=== PATIENT | female | born 1980 | race Caucasian/White ===

== ENCOUNTER 2020-05-23 14:22 | Emergency (ER) | payer OTHER, SELFPAY ==
--- NOTE | 2020-05-23 | XR_ITS ---
EXAMINATION: XR KNEE, LEFT CLINICAL INFORMATION: Pain. COMPARISON: None TECHNIQUE: Four views of the left knee. FINDINGS: A total knee arthroplasty is present in expected position. No evidence for loosening. There is a moderately sized joint effusion. An ossific density overlying the expected position of the suprapatellar bursa is of undetermined significance. This could represent dystrophic calcification. A loose body in the suprapatellar bursa is possible. Comparison with any prior examinations would be helpful. IMPRESSION: Left TKA with no complication demonstrated. Moderate joint effusion. Suprapatellar ossific density of undetermined significance. Comparison with any prior studies would be helpful.
[2020-05-23 14:50] VITALS: BP 146/97; PULSE 89; RESP 17; TEMP 36.6; O2SAT 100; BMI 30.9
--- NOTE | 2020-05-23 15:53 | ED_ITS ---
HPI - Extremity Problem General Chief complaint: Extremity Injury, Lower Stated complaint: L KNEE PAIN Time Seen by Provider: 05/23/20 15:11 History of Present Illness HPI Narrative: patient is 3 months after a left knee replacement and 1 week after a procedure to remove scar tissue and comes complaining of pain in the left knee, she has had no injury no fever Related Data Previous Rx's Medication Instructions Recorded oxycodone 5 mg PO Q6H PRN #20 cap 05/23/20 Allergies Allergy/AdvReac Type Severity Reaction Status Date / Time No Known Allergies Allergy Verified 05/23/20 14:55 [No Known Allergies*] Review of Systems Review of Systems: patient has no fever no chills no shortness of breath no chest pain no new injury no nausea no vomiting, no rash Yes all other systems are reviewed and are negative [facility] Past Medical History Source: nursing notes reviewed Surgical History (Updated 05/23/20 @ 14:53 by Anh Deng RN) History of total knee replacement Social History Social History Advance Directives: No Advance Directives Information Provided: No Physical Exam Vital Signs and I&O and Narrative: Vital Signs and I&O: Vital Signs Temp 97.8 F 05/23/20 14:50 Pulse 89 05/23/20 14:50 Resp 17 05/23/20 14:50 BP 146/97 H 05/23/20 14:50 Pulse Ox 100 05/23/20 14:50 Intake & Output 05/22/20 05/23/20 05/23/20 18:59 06:59 18:59 Weight 79.379 kg Body Mass Index 30.9 general appearance is no acute distress, A&O x3 Normocephalic atraumatic, neck supple, respiratory no respiratory distress Extremities the left knee is normal in color, there are [address], it is not red and it is not warm, there is no discharge There is swelling and tenderness the knee extends to 180 and flexes close to around 110, the patient is ambulatory with a cane and can bear weight Neuro A&O x3, no numbness no weakness Course Reevaluation(s) Reevaluation #1: x-ray of the left knee showed some of fusion, it showed hardware in place and intact, no acute injury The patient's exam did not show any sign of septic arthritis The patient is moving here from [facility] where the surgery was done and is looking to find a new doctor so I will give her orthopedic referrals Discharge Plan Discharge Clinical Impression: Knee arthropathy Patient Disposition: Home, Self-Care Additional Instructions: there is no sign of any joint infection today, x-ray did not show any problem with the hardware It can take many months to recover from a total knee replacement with a recent revision For 2nd opinion to get a local orthopedist. you can try [facility] phone number [phone] where they will have some specialists in joint replacement, or local general orthopedist in [place] Prescriptions: New oxycodone 5 mg capsule 5 mg PO Q6H PRN (Reason: pain) Qty: 20 RF: 0 Referrals: Erika Cowan MD [Physician] - 10 days ( status post total knee replacement and revision a week ago complains of pain, just moved from [place] and will need physical therapy and continued orthopedic evaluation)
== END 2020-05-23 16:30 | disposition home or self-care (01) ==
PROVIDERS: Emergency Provider Emergency Medicine
DX: M12.862 Other specific arthropathies, not elsewhere classified, left knee (principal); Z96.652 Presence of left artificial knee joint
CPT/HCPCS: 73564; 99283